=== PATIENT | male | born 1965 | race Caucasian/White ===

== ENCOUNTER 2024-03-26 18:19 | Emergency (ER) | payer BC ==
[~2024-03-26] VITALS: Ht 177.8 cm; Wt 104.0 kg
[~2024-03-26 18:19] MED LIST: AUGMENTIN875TAB OR; CIPRO500 MG PO; COLCRYS0.6 MG OR; HYDROXYZ HCL25 MG PO; INDOMETHACIN50 MG PO; KEFLEX500 MG OR; MULTI VIT PO; OMEGA 31000 MG PO; TRAMADOL HCL50 MG PO; TRIAMCINOLON0.11 EX; [UNRECOGNIZED DRUG - OTHER]
[2024-03-26] MEDS ORDERED: LIDOcaine HCl 1% (Local Anesth.) 20 ML VIAL STI STA (18:31)
[2024-03-26 18:34] VITALS: BP 129/81
[2024-03-26] MEDS ORDERED: Diph, Acellular Pertussis, Tet 0.5 ML/VIAL (Tdap) SDV IM ONE (18:35)
[2024-03-26] MEDS ORDERED: POVIDONE IODINE 0.5 OZ/BTL TOP ONE (18:35)
[2024-03-26] MEDS ORDERED: NEOMYCIN-BACITRACIN-POLYMYXIN 0.5 GM/PAK PAK TOP ONE (18:35)
[2024-03-26] MEDS ORDERED: SODIUM CHLORIDE 500 ML BTL IR ONE (18:35)
[2024-03-26] MEDS ORDERED: KEFLEX500 MG PO (18:58)
[2024-03-26 19:01] VITALS: BP 129/90
[2024-03-26 19:19] VITALS: BP 129/90
== END 2024-03-26 19:19 | disposition home or self-care (01) | DRG 605 ==
LOC: ED 18:19
PROC: 0HQEXZZ Repair Left Lower Arm Skin, External Approach (ICD-10-PCS; principal; 2024-03-26)
DX: S51.812A Laceration without foreign body of left forearm, initial encounter (principal); I10 Essential (primary) hypertension; F41.9 Anxiety disorder, unspecified; W26.8XXA Contact with other sharp object(s), not elsewhere classified, initial encounter; Y92.009 Unspecified place in unspecified non-institutional (private) residence as the place of occurrence of the external cause

== ENCOUNTER 2024-09-28 11:12 | Emergency (ER) | payer BC ==
[~2024-09-28] VITALS: Ht 177.8 cm; Wt 100.0 kg
[~2024-09-28 11:12] MED LIST changes: +KEFLEX500 MG PO
[2024-09-28 11:22] VITALS: BP 140/87
[2024-09-28] MEDS ORDERED: KETOROLAC TROMETHAMINE 30 MG/ML SDV IM ONE (11:30)
[2024-09-28] MEDS ORDERED: ACETAMINOPHEN 500 MG TAB PO ONE (11:30)
[2024-09-28 13:06] VITALS: BP 140/87
== END 2024-09-28 13:13 | disposition home or self-care (01) | DRG 605 ==
LOC: ED 11:12
DX: S20.212A Contusion of left front wall of thorax, initial encounter (principal); X58.XXXA Exposure to other specified factors, initial encounter